=== PATIENT | male | born 1990 | race Caucasian/White ===

== ENCOUNTER 2022-07-28 01:26 | Day surgery (SDC) | payer BC, SELFPAY ==
[2022-07-18 14:57] VITALS: BMI 36.3
[2022-07-28 08:09] VITALS: BP 155/95; PULSE 70; RESP 20; TEMP 35.8; O2SAT 99
[2022-07-28] MEDS: LACTATED RINGERS 1,000 ML 150 ML IV CONT (08:10)
--- NOTE | 2022-07-28 08:40 | PM.HPGS ---
History of Present Illness History of Present Illness Consent: Risks, benefits, and alternatives have been discussed and questions answered. Patient agrees to proceed with procedure. Chief complaint: family hx colon ca, hx of colon polyps Narrative: Dilip Garrido Jr. is a 32 year old male here with colon polyp in 2019 and grandparent with colon cancer Review of Systems Constitutional: Constitutional: Denies headache(s) and Denies weakness Eyes: Eyes: Denies blurry vision ENT: Reports Normal hearing present, Denies headache(s) and Denies neck pain Cardiovascular: Cardiovascular: Denies chest pain and Denies dyspnea Respiratory: Respiratory: Denies dyspnea Gastrointestinal: Gastrointestinal: Reports no additional gastrointestinal complaints Genitourinary: Genitourinary: Denies dysuria Musculoskeletal: Musculoskeletal: Denies neck pain Integumentary/Breasts: Skin/Breast: Denies dry skin Neurologic: Reports Normal hearing present, Denies headache(s) and Denies weakness Psychiatric: Psychiatric: Denies anxiety Endocrine: Endocrine: Denies change in body appearance Hematologic/Lymphatic: Hematologic/Lymphatic: Denies easy bleeding Allergic/Immunologic: Allergic/Immunologic: Denies urticaria [facility] Past Medical History Medical History (Updated 07/28/22 @ 08:42 by Negro Vasquez MD) Adenomatous colon polyp Benign essential HTN BMI 38.0-38.9,adult Colon polyp FHx: colon cancer Surgical History Surgical History H/O colonoscopy with polypectomy Family History Family History Father Alcohol abuse Mother Hypertension Depression Sibling Depression Grandparent Carcinoma of colon, Onset Age: 29 Social History Social History (Updated 03/16/22 @ 16:40 by Cindy Bhatia) Social History: Fiance Smoking status: Never smoker Second hand tobacco smoke exposure: No Alcohol intake: current Alcohol use details: rare Substance use: current Substance use type: marijuana Living arrangements: with family Gender identity (if verbalized by the patient): Male Sexual Orientation (if Verbalized by the Patient): Straight or Heterosexual Spiritual care concerns: No Meds Home Medications and Allergies Home Medications Medication Instructions Recorded Confirmed Type irbesartan 150 1 tablet PO DAILY #90 tabs 03/16/22 07/28/22 Rx mg-hydrochlorothiazide 12.5 mg tablet metoprolol tartrate 25 mg tablet 25 mg PO BID #180 tabs 03/16/22 07/28/22 Rx Allergies Allergy/AdvReac Type Severity Reaction Status Date / Time morphine Allergy Mild Sees red Verified 07/28/22 08:08 and gets angry Vital Signs Vital Signs - 24 hr 07/28/22 08:09 Temperature 96.5 F L Pulse Rate 70 Respiratory Rate 20 Blood Pressure 155/95 H Pulse Oximetry 99 Oxygen Delivery Room Air Exam Const: General: comfortable and no acute distress HENMT: Face/Nose/Sinus: Normal nares present Eyes: General: appearance normal, both eyes and all related structures Neck: Neck: no JVD Resp: Auscultation: clear to auscultation bilaterally Cardio: Rate: regular rate Rhythm: regular rhythm GI: Inspection: non-distended GI Palp: Yes Soft to palpation Skin: General skin exam: normal color Neuro: General: gait normal Speech: normal speech Extrem: General: normal to inspection Psych: Mental Status: mental status grossly normal Assessment and Plan Assessment and plan (1) Adenomatous colon polyp: Code(s): D12.6 - Benign neoplasm of colon, unspecified Status: Acute Assessment and Plan: colonoscopy
--- NOTE | 2022-07-28 08:42 | P.PNAN_ITS ---
Anes - Initial Pre Proc Eval Procedure: Operation Date: 07/28/22 09:00 Proposed Procedures p Screening Colonoscopy - Negro Vasquez MD Date/Time: 07/28/22 08:42 Surgeon: Negro Vasquez MD Pre Op Diagnosis: family hx colon ca, hx of colon polyps Patient Data Age: 32 Gender: M Height: 1.91 m Weight: 141.4 kg Last Vital Signs Temp 96.5 F L 07/28/22 08:09 Pulse 70 07/28/22 08:09 Resp 20 07/28/22 08:09 BP 155/95 H 07/28/22 08:09 Pulse Ox 99 07/28/22 08:09 O2 Del Method Room Air 07/28/22 08:09 Allergies Allergy/AdvReac Type Severity Reaction Status Date / Time morphine Allergy Mild Sees red Verified 07/28/22 08:08 and gets angry Home Medications Medication Instructions Recorded Confirmed Type irbesartan 150 1 tablet PO DAILY #90 tabs 03/16/22 07/28/22 Rx mg-hydrochlorothiazide 12.5 mg tablet metoprolol tartrate 25 mg tablet 25 mg PO BID #180 tabs 03/16/22 07/28/22 Rx Patient hx anesthesia problems: none Family hx anesthesia problems: none Results Review: All pre-operative results and documents have been reviewed as part of the pre- operative evaluation. [facility] Past Medical History Medical History (Updated 07/28/22 @ 08:42 by Negro Vasquez MD) Adenomatous colon polyp Benign essential HTN BMI 38.0-38.9,adult Colon polyp FHx: colon cancer Surgical History Surgical History H/O colonoscopy with polypectomy Family History Family History Father Alcohol abuse Mother Hypertension Depression Sibling Depression Grandparent Carcinoma of colon, Onset Age: 29 Social History Social History (Updated 03/16/22 @ 16:40 by Cindy Bhatia) Social History: Fiance Smoking status: Never smoker Second hand tobacco smoke exposure: No Alcohol intake: current Alcohol use details: rare Substance use: current Substance use type: marijuana Living arrangements: with family Gender identity (if verbalized by the patient): Male Sexual Orientation (if Verbalized by the Patient): Straight or Heterosexual Spiritual care concerns: No Anes - Eval Final PreProcedure Day of Procedure 07/28/22 08:42 Patient weight: morbidly obese Heart: regular rate and rhythm Lungs: clear to auscultation Airway: Mallampati scale class II Neurological: alert and oriented Last oral intake: >/= 8 hours ASA classification: III Emergent: no Anesthetic plan: proceed Results Review: All pre-operative results and documents have been reviewed as part of the pre- operative evaluation. Informed Consent: The patient's anesthetic plan and its attendant risks and benefits were discussed with the patient/family/POA. Questions were solicited and answers provided to the satisfaction of the patient/family/POA.
[2022-07-28 09:03] VITALS: BP 140/99; PULSE 79; RESP 17; O2SAT 100
[2022-07-28 09:13] VITALS: BP 147/96; PULSE 85; RESP 17; O2SAT 100
[2022-07-28 09:21] VITALS: BP 144/84; PULSE 69; RESP 15; O2SAT 100
== END 2022-07-28 09:38 | disposition home or self-care (01) ==
PROVIDERS: PCP Family Medicine; Visit Provider Internal Medicine Gastroenterology
PROC: 0DJD8ZZ Inspection of Lower Intestinal Tract, Via Natural or Artificial Opening Endoscopic (ICD-10-PCS; CPT 45378; principal; 2022-07-28 09:00)
DX: Z12.11 Encounter for screening for malignant neoplasm of colon (principal); K63.5 Polyp of colon; K64.8 Other hemorrhoids; I10 Essential (primary) hypertension; E66.9 Obesity, unspecified; Z68.39 Body mass index [BMI] 39.0-39.9, adult; F12.90 Cannabis use, unspecified, uncomplicated
CPT/HCPCS: 45385; 88305; J2001; J2704; J7120

== ENCOUNTER 2024-10-29 07:55 | Outpatient (CLI) | payer OTHER, SELFPAY ==
--- OUTSIDE RECORDS SUMMARY | 2024-11-05 17:55 | XMS_ITS | Patient Health Summary ---
Author Organization [facility] [employer] Address [address] [place] [address] Care Team Providers Care Rooms Director Name Role Phone Unavailable Primary Care Provider Unavailabl e Note from [facility],non-owned Affiliates and Associated Physician Practices is amultiple site organization consisting of ambulatory clinics and hospital sitesin [place], [place], [place] and [place]. This disclosure is being madepursuant to the Care Everywhere program and may not contain all information available regarding this patient. Last updated 18.[facility] [employer] Allergies No known active allergies Medications * Be aware that medications may not be up to date on this document. Alwaysverify current medications with the patient. * Testosterone Cypionate (DEPO-TESTOSTERONE IM) Social History Tobacco Use Types Packs/Day Years Used Date Smoking Tobacco: Never Smokeless Tobacco: Never Sex and Gender Information Value Date Recorded Sex Assigned at Not on file Gender Identity Not on file Sexual Orientation Not on file Last Filed Vital Signs Vital Sign Reading Time Taken Comments Blood Pressure 118/82 09/02/2018 11:04 AM EXECUTIVE PILOT Pulse 80 09/02/2018 11:04 AM EXECUTIVE PILOT Temperature 36.8 ??C (98.2 ??F) 09/02/2018 11:[address] Respiratory Rate 18 09/02/2018 11:04 AM EXECUTIVE PILOT Oxygen Saturation 97% 09/02/2018 11:04 AM EXECUTIVE PILOT Inhaled Oxygen Concentration - - Weight 120.2 kg (265 lb) 09/02/2018 11:04 AM EXECUTIVE PILOT Height 188 cm (6' 2 ) 09/02/2018 11:04 AM EXECUTIVE PILOT Body Mass Index 34.02 09/02/2018 11:04 AM EXECUTIVE PILOT Procedures * STREP A SCREEN - POINT OF CARE (AMB) STL(Performed 09/02/2018) Performed for Acute nasopharyngitis * INFLUENZA A+B - POINT OF CARE (AMB)(Performed 09/02/2018) Performed for Acute nasopharyngitis Results * STREP A SCREEN - POINT OF CARE (AMB) STL (09/02/2018) Strep A Rapid POCT Negative Negative Strep A Internal Control Present Lot # [id number] Expiration Date Throat ENTIRE THROAT (SURFACE REGION OF NECK) / Unknown 09/02/2018 Micha Blandon CHIEF NURSE EXECUTIVE-INSURANCE OFFICE MANAGER LAB - POINT OF CARE ORDERABLES * INFLUENZA A+B - POINT OF CARE (AMB) (09/02/2018) Influenza A Antigen Rapid Negative Negative Influenza B Antigen Rapid Negative Negative Influenza Internal Control present NEGATIVE - POSITIVE Influenza Lot Number [id number] Influenza Expiration Date Other NASOPHARYNGEAL SWAB / Unknown 09/02/2018 Micha Blandon CHIEF NURSE EXECUTIVE-INSURANCE OFFICE MANAGER LAB - POINT OF CARE ORDERABLES
--- OUTSIDE RECORDS SUMMARY | 2024-11-05 17:55 | XMS_ITS | Encounter Summary ---
Author Organization [facility] Address [address] [place] [address] Care Team Providers Care Water Operator Name Role Phone Unavailable Primary Care Provider Unavailabl e Reason for Visit * Reason Comments Sore Throat ear pain body aches Encounter Details Date Type Department Care Team (Late st Contact Info) Description 09/02/2018 10:40 AM SHANK BREAKER Office Visit [facility] AT [address] [phone] Provider, [facility] Acute nasopharyngitis (Primary Dx) Social History Tobacco Use Types Packs/Day Years Used Date Smoking Tobacco: Never Smokeless Tobacco: Never Sex and Gender Information Value Date Recorded Sex Assigned at Not on file Gender Identity Not on file Sexual Orientation Not on file documented as of this encounter Last Filed Vital Signs Vital Sign Reading Time Taken Comments Blood Pressure 118/82 09/02/2018 11:04 AM SHANK BREAKER Pulse 80 09/02/2018 11:04 AM SHANK BREAKER Temperature 36.8 ??C (98.2 ??F) 09/02/2018 11:[address] Respiratory Rate 18 09/02/2018 11:04 AM SHANK BREAKER Oxygen Saturation 97% 09/02/2018 11:04 AM SHANK BREAKER Inhaled Oxygen Concentration - - Weight 120.2 kg (265 lb) 09/02/2018 11:04 AM SHANK BREAKER Height 188 cm (6' 2 ) 09/02/2018 11:04 AM SHANK BREAKER Body Mass Index 34.02 09/02/2018 11:04 AM SHANK BREAKER documented in this encounter Patient Instructions * Patient Instructions* Micha Blandon, PHTHALIC ACID PURIFIER-PER DIEM PHYSICAL THERAPIST ASSISTANT - 09/02/2018 11:18 AM SHANK BREAKER Images from the original note were not included. Upper Respiratory Infection WHAT YOU NEED TO KNOW: What is an upper respiratory infection? An upper respiratory infection is also called a common cold. It can affect your nose, throat, ears, and sinuses. What causes a cold? The common cold is caused by a virus. There are many different cold viruses, and each is contagious. This means the virus can be easily spread to another person when the sick person coughs or sneezes. The virus can also be spread if you touch something that a person with a cold has touched. You are more likely to get a cold in the winter. Your risk of getting a cold may be increased if you smoke cigarettes or have allergies, such as hay fever. What are the signs and symptoms of a cold? Cold symptoms are usually worst for the first 3 to 5 days. You may have any of the following: ?? Runny or stuffy nose ?? Sneezing and coughing ?? Sore throat or hoarseness ?? Red, watery, and sore eyes ?? Fatigue ?? Chills and fever ?? Headache, body aches, or sore muscles How is a cold treated? There is no cure for the common cold. Colds are caused by viruses and do notget better with antibiotics. Most people get better in 7 to 14 days. You may continue to cough for 2 to 3 weeks. The following may help decrease your symptoms: ?? Decongestants help reduce nasal congestion and help you breathe more easily. If you take decongestant pills, they may make you feel restless or cause problems with your sleep. Do not use decongestant sprays for more than a few days. ?? Cough suppressants help reduce coughing. Ask your healthcare provider which type of cough medicine is best for you. ?? NSAIDs , such as ibuprofen, help decrease swelling, pain, and fever. NSAIDs can cause stomach bleeding or kidney problems in certain people. If you take blood thinner medicine, always ask your healthcare provider if NSAIDs are safe for you. Always read the medicine label and follow directions. ?? Acetaminophen decreases pain and fever. It is available without a doctor's order. Ask how much to take and how often to take it. Follow directions. Read the labels of all other medicines you are using to see if they also contain acetaminophen, or ask your doctor or pharmacist. Acetaminophen can cause liver damage if not taken correctly. Do not use more than 4 grams (4,000 milligrams) total of acetaminophen in one day. How can I manage my cold? ?? Rest as much as possible. Slowly start to do more each day. ?? Drink more liquids as directed. Liquids will help thin and loosen mucus so you can cough it up. Liquids will also help prevent dehydration. Liquids that help prevent dehydration include water, fruit juice, and broth. Do not drink liquids that contain caffeine. Caffeine can increase your risk fordehydration. Ask your healthcare provider how much liquid to drink each day. ?? Soothe a sore throat. Gargle with warm salt water. This helps your sore throat feel better. Makesalt water by dissolving ?? teaspoon salt in 1 cup warm water. You may also suck on hard candy or throat lozenges. You may use a sore throat spray. ?? Use a humidifier or vaporizer. Use a cool mist humidifier or a vaporizer to increase air moisture in your home. This may make it easier for you to breathe and help decrease your cough. ?? Use saline nasal drops as directed. These help relieve congestion. ?? Apply petroleum-based jelly around the outside of your nostrils. This can decrease irritation from blowing your nose. ?? Do not smoke. Nicotine and other chemicals in cigarettes and cigars can make your symptoms worse. They can also cause infections such as bronchitis or pneumonia. Ask your healthcare provider for information if you currently smoke and need help to quit. E-cigarettes or smokeless tobacco still contain nicotine. Talk to your healthcare provider before you use these products. What can I do to prevent the spread of the common cold? ?? Try to stay away from other people during the first 2 to 3 days of your cold when it is more easily spread. ?? Do not share food or drinks. ?? Do not share hand towels with household members. ?? Wash your hands often, especially after you blow your nose. Turn away from other people and cover your mouth and nose with a tissue when you sneeze or cough. When should I seek immediate care? ?? You have chest pain or trouble breathing. When should I contact my healthcare provider? ?? You have a fever over 102??F (39??C). ?? Your sore throat gets worse or you see white or yellow spots in your throat. ?? Your symptoms get worse after 3 to 5 days or your cold is not better in 14 days. ?? You have a rash anywhere on your skin. ?? You have large, tender lumps in your neck. ?? You have thick, green, or yellow drainage from your nose. ?? You cough up thick yellow, green, or bloody mucus. ?? You are vomiting for more than 24 hours and cannot keep fluids down. ?? You have a bad earache. ?? You have questions or concerns about your condition or care. CARE AGREEMENT: You have the right to help plan your care. Learn about your health condition and how it may be treated. Discuss treatment options with your caregivers to decide what care you want to receive. You always have the right to refuse treatment. The above information is an administrative aide only. It is not intended as medical advice for individual conditions or treatments. Talk to your doctor, nurse or pharmacist before following any medical regimen to see if it is safe and effective for you. ?? Copyright [employer] 2017 Information is for End User's use only and may not be sold, redistributed or otherwise used for commercial purposes. All illustrations and images included in CareNotes?? are the copyrighted property of [employer] or [employer] K BREAKER documented in this encounter Progress Notes * Micha Blandon APRN-CNP - 09/02/2018 11:27 AM CST Subjective: Dilip Garrido is a 28 y.o. male who presents for evaluation: Chief Complaint Patient presents with ??? Sore Throat ear pain body aches Primary Care Physician is No primary care provider on file.. Symptoms include ear pain left, sore throat and body aches. Concerned about flu and strep. Onset of symptoms was 3 days ago, gradually worsening since that time. sore throat, left ear pressure/pain, non productive cough, achiness. He is drinking plenty of fluids. Evaluation to date: none. Treatment to date: none No Known Allergies Outpatient Prescriptions Marked as Taking for the 09/02/18 encounter (Office Visit) with Provider, Christian Navarrowood Medication Sig ??? Testosterone Cypionate (DEPO-TESTOSTERONE IM) No past medical history on file. Social History Social History ??? Marital status: Single Spouse name: N/A ??? Number of children: N/A ??? Years of education: N/A Occupational History ??? Not on file. Social History Main Topics ??? Smoking status: Never Smoker ??? Smokeless tobacco: Never Used ??? Alcohol use Not on file ??? Drug use: Not on file ??? Sexual activity: Not on file Other Topics Concern ??? Not on file Social History Narrative ??? No narrative on file Medications reviewed. Review of Systems Constitutional: Positive for fatigue, Negative for fevers, chills. Eyes: Negative Ears, nose, mouth, and throat: Positive for earaches on left, sinus trouble, tonsillitis (left sided sore throat), Negative for vertigo Respiratory: Mild cough. No SOB or wheezing Cardiovascular: Negative Neurological: Negative Objective: BP 118/82 (BP SITE: LEFT ARM, BP POSITION: SITTING, BP CUFF SIZE: 11) Pulse 80 Temp 98.2 ??F (36.8 ??C) (Oral) Resp 18 Ht 1.88 m (6' 2 ) Wt 120.2 kg (265 lb) SpO2 97% BMI 34.02 kg/m2 Skin: Physical Exam Exam General appearance: alert, cooperative, no distress Eyes: sclera and conjunctiva clear, EOMI and PERRLA, lids normal Ears: canals clear, tympanic membranes normal, hearing intact to voice Nose: nares open; no septal deviation is noted. Clear rhinorrhea. No sinus tenderness Throat: no mucous membrane abnormalities, mild oropharyngeal erythema Neck: range of motion is intact, no masses, thyroid not enlarged, no adenopathy Lungs: breath sounds normal and symmetric; no rales or wheezes Heart: regular rhythm, normal S1 and S2, without murmurs, gallops or rubs Neurologic: mental status normal; alert and oriented X 3; cranial nerves II - XII are grossly intact Assessment: . Encounter Diagnoses Name Primary? Acute nasopharyngitis Yes Plan: Discussed dx and tx of URIs You have been diagnosed with a viral infection. -Viral infections do not improve with antibiotics. -Viral symptoms can linger from 7-14 days -The color of discharge does not always reflect the need for an antibiotic, even during a viral illness it is normal for drainage to change from yellow to green at times. -Please refer to the CDC Get Smart (cdc.gov/getsmart) campaign for more details. There are many OTC medications and supportive care measures you can try to treat your symptoms until your symptoms resolve. -Tylenol or Ibuprofen for aches, pains. Take per package directions -Antihistamines like Claritin or Benadryl as needed for drainage. Take per package directions -Delsym as needed for coughing. Follow package directions -Frequent cough drops and lozenges -Increase fluids, especially decaffeinated ones -Sleep with head of bed raised to promote drainage -Avoid spreading the virus by remaining at home and away from others until you are fever-free (temperature below 100) for 24 hours. Good handwashing and covering your mouth when coughing are also important. If you are not improving or worsening in the next 5-7 days you must RETURN to the clinic, go to your PCP, or Urgent Care/ER to be SEEN and reevaluated. No further prescriptions or refills will be given by phone without another evaluation. If you develop a high fever 103+, neck stiffness, trouble breathing, chest pain, or other life threatening symptoms GO TO THE ER IMMEDIATELY. REFUSED THROAT CULTURE AT THIS TIME Continue to follow up with No primary care provider on file. as directed. After Visit Summary reviewed with patient. The patient indicates understanding of these issues and agrees with the plan. Patient discharged to Home .ALICIA Colmenares 09/02/2018 11:27 AM Orders Placed This Encounter ??? INFLUENZA A+B - POINT OF CARE (AMB) ??? STREP A SCREEN - POINT OF CARE (AMB) STL Recent Results (from the past 24 hour(s)) INFLUENZA A+B - POINT OF CARE (AMB) Collection Time: 09/02/18 12:00 AM Result Value Ref Range Influenza A Antigen Rapid Negative Negative Influenza B Antigen Rapid Negative Negative Influenza Internal Control present NEGATIVE - POSITIVE Influenza Lot Number [id number] Influenza Expiration Date STREP A SCREEN - POINT OF CARE (AMB) STL Collection Time: 09/02/18 12:00 AM Result Value Ref Range Strep A Rapid POCT Negative Negative Strep A Internal Control Present Lot # [id number] Expiration Date K BREAKER documented in this encounter Plan of Treatment Not on file documented as of this encounter Procedures Procedure Name Priority Date/Time Associated Diagnosis Comments STREP A SCREEN - POINT OF CARE (AMB) STL Routine 09/02/2018 Acute nasopharyngitis INFLUENZA A+B - POINT OF CARE (AMB) Routine 09/02/2018 Acute nasopharyngitis documented in this encounter Results * STREP A SCREEN - POINT OF CARE (AMB) STL (09/02/2018) Strep A Rapid POCT Negative Negative Strep A Internal Control Present Lot # [id number] Expiration Date Throat ENTIRE THROAT (SURFACE REGION OF NECK) / Unknown 09/02/2018 Micha Blandon PHTHALIC ACID PURIFIER-PER DIEM PHYSICAL THERAPIST ASSISTANT LAB - POINT OF CARE ORDERABLES * INFLUENZA A+B - POINT OF CARE (AMB) (09/02/2018) Influenza A Antigen Rapid Negative Negative Influenza B Antigen Rapid Negative Negative Influenza Internal Control present NEGATIVE - POSITIVE Influenza Lot Number [id number] Influenza Expiration Date Other NASOPHARYNGEAL SWAB / Unknown 09/02/2018 Micha Blandon APRN-PER DIEM PHYSICAL THERAPIST ASSISTANT LAB - POINT OF CARE ORDERABLES documented in this encounter Visit Diagnoses Diagnosis Acute nasopharyngitis- Primary Acute nasopharyngitis (common cold) documented in this encounter
--- OUTSIDE RECORDS SUMMARY | 2024-11-05 17:55 | XMS_ITS | Referral Summary ---
Author Organization [facility] Address [address] [place] [address] Care Team Providers Care Feed Research Technician Name Role Phone Unavailable Primary Care Provider Unavailabl e Source Comments [facility],non-owned Affiliates and Associated Physician Practices is amultiple site organization consisting of ambulatory clinics and hospital sitesin [place], [place], [place] and [place]. This disclosure is being madepursuant to the Care Everywhere program and may not contain all information available regarding this patient. Last updated 18.[facility] [employer] Allergies No known active allergies Medications * Be aware that medications may not be up to date on this document. Alwaysverify current medications with the patient. Medication Sig Dispensed Refills Start Date End Date Status Testosterone Cypionate (DEPO-TESTOSTERONE IM) Ac tive Social History Tobacco Use Types Packs/Day Years Used Date Smoking Tobacco: Never Smokeless Tobacco: Never Sex and Gender Information Value Date Recorded Sex Assigned at Not on file Gender Identity Not on file Sexual Orientation Not on file Last Filed Vital Signs Vital Sign Reading Time Taken Comments Blood Pressure 118/82 09/02/2018 11:04 AM [employer]PER Pulse 80 09/02/2018 11:04 AM [employer]ER'S HELPER Temperature 36.8 ??C (98.2 ??F) 09/02/2018 11:[address] Respiratory Rate 18 09/02/2018 11:04 AM SHO[employer]ER'S HELPER Oxygen Saturation 97% 09/02/2018 11:04 AM SHO[employer]ER'S HELPER Inhaled Oxygen Concentration - - Weight 120.2 kg (265 lb) 09/02/2018 11:04 AM [employer]ER'S HELPER Height 188 cm (6' 2 ) 09/02/2018 11:04 AM [employer]ER'S HELPER Body Mass Index 34.02 09/02/2018 11:04 AM SHOOTER'S HELPER Plan of Treatment Not on file
--- OUTSIDE RECORDS SUMMARY | 2024-11-05 17:55 | XMS_ITS | Encounter Summary ---
Author Organization [facility] Address [address] [place] [address] Care Team Providers Care Silver Designer Name Role Phone Unavailable Primary Care Provider Unavailabl e Reason for Visit * Reason Onset Date Comments Follow-up 09/03/2018 Encounter Details Date Type Department Care Team (Late st Contact Info) Description 09/03/2018 Telephone [facility] [employer] [facility] AT [address] [phone] Provider, [facility] [place] Follow-up Social History Tobacco Use Types Packs/Day Years Used Date Smoking Tobacco: Never Smokeless Tobacco: Never Sex and Gender Information Value Date Recorded Sex Assigned at Not on file Gender Identity Not on file Sexual Orientation Not on file documented as of this encounter Plan of Treatment Not on file documented as of this encounter Visit Diagnoses Not on filedocumented in this encounter
--- OUTSIDE RECORDS SUMMARY | 2024-11-05 17:55 | XMS_ITS | Clinical Summary ---
Author Organization [facility] [employer] Address [address] [place] [address] Care Team Providers Care Mental Health Therapist Name Role Phone Unavailable Primary Care Provider Unavailabl e Source Comments [facility],non-owned Affiliates and Associated Physician Practices is amultiple site organization consisting of ambulatory clinics and hospital sitesin [place], [place], [place] and [place]. This disclosure is being madepursuant to the Care Everywhere program and may not contain all information available regarding this patient. Last updated 18.[facility] [employer] Allergies No known active allergies Medications * [...] Comments Blood Pressure 118/82 09/02/2018 11:04 AM LATHMAKER Pulse 80 09/02/2018 11:04 AM LATHMAKER Temperature 36.8 ??C (98.2 ??F) 09/02/2018 11:[address] Respiratory Rate 18 09/02/2018 11:04 AM LATHMAKER Oxygen Saturation 97% 09/02/2018 11:04 AM LATHMAKER Inhaled Oxygen Concentration - - Weight 120.2 kg (265 lb) 09/02/2018 11:04 AM LATHMAKER Height 188 cm (6' 2 ) 09/02/2018 11:04 AM LATHMAKER Body Mass Index 34.02 09/02/2018 11:04 AM LATHMAKER Plan of Treatment Health Maintenance Due Date Last Done Comments HIV SCREENING 2005 HEPATITIS C SCREENING 02/25/2008 DTAP/TDAP/TD VACCINES (1 - Tdap) 2009 HEPATITIS B VACCINE (1 of 3 - 19+ 3-dose series) 2009 COVID-19 VACCINE (1 - 2023-2 5 season) 2024 INFLUENZA VACCINE (#1) 2024 DEPRESSION SCREENING 10/15/2024 ZOSTER VACCINE (1 of 2) 2040 HIB VACCINE Aged Out No longer eligi ble based on patient's age to complete this topic HPV VACCINE Aged Out No longer eligi ble based on patient's age to complete this topic MENINGOCOCCAL (Group B) VACCINE Aged Out No longer eligible based on patient's age to complete this topic MENINGOCOCCAL VACCINE Aged Out No maximilian harsh eligible based on patient's age to complete this topic PNEUMOCOCCAL VACCINE Aged Out No long er eligible based on patient's age to complete this topic
--- NOTE | 2024-11-17 19:36 | P.SLEEP_ITS ---
Sleep Study - Home Unattended Date of Study: 10/29/24 Ordering Provider: KARISSA Clements Interpreting Provider: Arabella Moe DO Home Sleep Study Type: Watch PAT Height: 1.91 m Weight: 133.81 kg Body Mass Index: 36.8 Neck Circumference (inches): 17.5 [place]: 15 Reason for Sleep Study Daytime hypersomnia Sleep History The patient is a 34-year-old male that had a sleep study ordered by the pulmonary group for evaluation of sleep apnea. The patient admits to snoring loudly, excessive daytime sleepiness and interruptions in breathing while asleep. He denies choking or gasping at night. He does have trouble breathing on his back. He does have morning headaches. He does have a dry or sore mouth / throat in the morning. He denies nocturnal heartburn. He denies nocturia. He denies having difficulty falling asleep. He denies having difficulty staying asleep. He denies having difficulty returning to sleep if he wakes up throughout the night. He denies any hypnotic or sedative use. He denies feeling anxious about sleep. He does feel tired or sleepy during the day. He does feel tired in the morning. He does have the urge to fall asleep during the day. He denies feeling drowsy while driving. He denies sleep paralysis, cataplexy and hypnagogic/ hypnopompic hallucinations. He does clench or grind his teeth. He denies kicking or jerking his legs excessively. He denies having a restless feeling in his legs. He goes to bed at 10:30 p.m. on his work days and at 11:45 p.m. on his days off. It takes him 15 minutes to fall asleep. He gets 7 hours of sleep per night. His sleep is not restorative on his days off. He does take planned naps in the afternoon that are less than 1 hour. The naps are not restorative. He denies dream enactment behavior. He denies sleep walking. He consumes 1-2 cups of caffeinated beverage per day. He denies alcohol and tobacco use. He denies exercising on regular basis. [facility] Past Medical History Medical History Adenomatous colon polyp Colon polyp BMI 38.0-38.9,adult FHx: colon cancer Benign essential HTN Surgical History Surgical History H/O colonoscopy with polypectomy Family History Family History Father Alcohol abuse Mother Hypertension Depression Sibling Depression Grandparent Carcinoma of colon, Onset Age: 29 Social History Social History Social History: Fiance Smoking status: Never smoker Second hand tobacco smoke exposure: No Alcohol intake: current Alcohol use details: rarely Substance use: current Substance use type: marijuana Do You Feel Safe in your Home?: Yes Lack of Transportation: No Lack of Food: Never True Current Housing: I Have Housing Concerned About Future Housing: No Difficulty Paying Gas/Electric Bills: No Difficulty Paying for Meds: No Currently Unemployed: No Education: Don't Know Living arrangements: with family Occupation/Education: occupation Gender identity (if verbalized by the patient): Male Sexual Orientation (if Verbalized by the Patient): Straight or Heterosexual Spiritual care concerns: No Medications Home Medications ?Medication ?Instructions ?Recorded ?Confirmed ?Type hydrochlorothiazide 25 mg tablet 25 mg PO DAILY #90 tabs 08/15/24 08/22/24 Rx Sleep Procedure The sleep study was completed using [employer] a technically adequate device with seven channels: peripheral arterial tone, actigraphy, body position, snore, respiratory movement, pulse oximetry, sleep staging, and heart rate. Prior to using the device, the patient received verbal and written instructions for its application and was provided with the help desk phone number for additional telephonic instruction with 24-hour availability of qualified personnel to answer questions. The study was scored using CMS guidelines. Sleep Architecture The total recording time is 8 hrs, 0 min. The total sleep time is 7 hrs, 23 min. Sleep latency is 20 minutes. REM latency is 91 minutes. The patient had 6 episodes of waking. Sleep architecture shows 19.1% deep sleep, 42.4% light sleep, and (as % Total Sleep Time) showed NREM (Light 42.4%; Deep 19.1%), and a 38.5% stage REM. The patient spent 73.0% of total sleep time in the supine position. Sleep efficiency was 92.29. Respiratory Analysis The overall AHI (pAHI 4%:) is 9.9. The overall AHI (pAHI 3%:) is 18.6. The central AHI is 0.1. The AHI was 16.3 in NREM and 22.3 in REM sleep. The AHI was 18.8 in Supine and 18.1 in Non-supine sleep. Percent of Kvng Tuttle respirations is 0.0. Oximetry Data The oxygen desaturation index (ODALYS 4%:) is 8.6. The mean saturation is 92%, and the lowest saturation is 85%. Time spent with saturation < 88% is 1.3 minutes. Snoring Profile Snoring average intensity is 41 dB. The patient snored above 45 decibels for 19.8 minutes, 4.5% of sleep time. Cardiac Profile The average pulse rate is 54 beats per minutes. The lowest pulse rate is 40 bpm. The highest pulse rate reported is 109 bpm. Atrial fibrillation was not detected. Premature beats occur <0.1 per minute. Assessment and Plan Assessment and Plan (1) AGUILA (obstructive sleep apnea): Code(s): G47.33 - Obstructive sleep apnea (adult) (pediatric) Status: Acute Assessment and Plan: The patient had an overall AHI of 9.9 with desaturation down to 85%. This is consistent with mild sleep apnea. Due to the patient's hypertension, he qualifies for treatment. I recommend that the patient be prescribed Resmed AirSense 11 AutoPAP 5-15 cm H2O, CPAP mask/filters/tubing and heated humidity. A mandibular advancement device is also an acceptable treatment method. This should be used with all episodes of sleep.? Compliance should be reviewed within 31-90 days of starting therapy for usage greater than 4 hours per night greater than 70% of the nights. The patient should be asked about symptoms such as?excessive daytime sleepiness, quality of sleep, decreased nocturia, increa sed?mental functioning such as memory, mood, and concentration. Data The data obtained during this sleep study is adequate for interpretation. Certification This sleep study has been reviewed by a board certified sleep medicine physician.
[2024-11-18 11:49] VITALS: BMI 36.8
== END 2024-10-30 13:44 | disposition home or self-care (01) ==
PROVIDERS: PCP Family Medicine; Visit Provider Physician Assistant
DX: G47.10 Hypersomnia, unspecified (principal); G47.33 Obstructive sleep apnea (adult) (pediatric)
CPT/HCPCS: 95800